=== PATIENT | female | born 1980 ===

== ENCOUNTER 2018-07-21 17:52 | Emergency (ER) | payer SELFPAY ==
[2018-07-21] MEDS ORDERED: Ketorolac Tromethamine 30 MG/ML VIAL ONE (18:39)
== END 2018-07-21 18:55 | disposition home or self-care (01) ==
LOC: ERS 17:52
DX: N76.4 Abscess of vulva (principal); F17.210 Nicotine dependence, cigarettes, uncomplicated
CPT/HCPCS: 96372; J1885